=== PATIENT | male | born 1950 | race American Indian/Alaskan Native ===

== ENCOUNTER 2018-09-28 09:37 | Observation (INO) | payer MEDICARE ==
[2018-09-28] MEDS ORDERED: ZOFRAN IV PRN (10:00)
[2018-09-28] MEDS ORDERED: LACTATED RINGERS 1,000 ML IV SCH (10:00)
--- NOTE | 2018-09-28 10:01 | Anesthesia Day of Surgery ---
Anesthesia Day of Surgery - Day of Surgery Patient Examined: Yes Patient H&P Reviewed: Yes Patient is NPO: Yes
--- NOTE | 2018-09-28 10:07 | Anesthesia Consultation ---
Anesthesia Consult and Med Hx Date of service: 09/28/18 - Airway Anesthetic Teeth Evaluation: Chipped ROM Head & Neck: Adequate (Decreased extension) Mental/Hyoid Distance: Adequate Mallampati Class: Class III Intubation Access Assessment: Probably Good - Pre-Operative Health Status ASA Pre-Surgery Classification: ASA2 Proposed Anesthetic Plan: General - Pulmonary Hx Smoking: No Hx Sleep Apnea: No (BRIT PRE SCREEN HIGH RISK.) - Cardiovascular System Hx Hypertension: Yes (X 1 YR) - Other Systems Hx Cancer: No
[2018-09-28] MEDS ORDERED: ANCEF/STERILE WATER 2 GM/20 ML 2 GM/20 ML SYRINGE IV NR (11:00)
[2018-09-28] MEDS ORDERED: ANCEF/STERILE WATER 2 GM/20 ML 2 GM/20 ML SYRINGE IV ONE (11:17)
[2018-09-28] MEDS ORDERED: VERSED ONE (11:45)
[2018-09-28] MEDS ORDERED: DIPRIVAN 10 MG/ML IV ONE (11:45)
[2018-09-28] MEDS ORDERED: SUBLIMAZE ONE (11:45)
[2018-09-28] MEDS ORDERED: XYLOCAINE MPF 2% ONE (11:45)
[2018-09-28] MEDS ORDERED: WATER FOR IRRIG STERILE IR ONE (11:55)
[2018-09-28] MEDS ORDERED: METHYLENE BLUE ONE (12:13)
[2018-09-28] MEDS ORDERED: NACL P/F VIAL (10 ML) 10 ML ONE (12:14)
[2018-09-28] MEDS: SUBLIMAZE IV PRN ×2 (13:00→13:30)
--- NOTE | 2018-09-28 13:01 | Post Operative Note ---
Date of procedure: 09/28/18 Pre-op diagnosis: hematuria Post-op diagnosis: same Findings: large gland Procedure: cysto attempterd rpgs Anesthesia: GETA Surgeon: ADITYA MARIA Estimated blood loss: minimal Pathology: none Condition: stable Disposition: PACU
[2018-09-28] MEDS ORDERED: NACL 0.9% 1,000 ML IR ONE ×2 (13:02→13:26)
--- NOTE | 2018-09-28 13:05 | Discharge Summary ---
Short Stay Discharge Plan Activity: other (no straing ) Weight Bearing Status: Full Weight Bearing Diet: low salt Special Instructions: other Follow up with: TENISHA VILLASEÑOR MD [Primary Care Provider] - 7 Days ADITYA MARIA MD [Staff Physician] - 7 Days
--- NOTE | 2018-09-28 13:32 | Operative Report ---
PREOPERATIVE DIAGNOSIS: Hematuria. POSTOPERATIVE DIAGNOSIS: Very large prostate with multiple cellules, large middle lobe, mostly extending from the right lateral lobe. PROCEDURE: Cystoscopy, attempted retrograde. SURGEON: Edmar Green MD ANESTHESIA: General. FINDINGS: This is a gentleman with very large prostate. He now presents for cystoscopy. DESCRIPTION OF PROCEDURE: The patient was brought to the operating room and placed on the operating table. Following induction of anesthesia, placed in lithotomy position, prepped and draped in usual sterile fashion. Cystourethroscopy showed there is large polypoid middle lobe extending from the right lobe. He also had a subtrigonal lobe. It was difficult to get access to the trigone. Just by inserting the scope, the prostate was very friable and would bleed. He was on low dose of aspirin. We did not want to traumatize his prostate too much. We looked with the 30 and 70 degree lenses. There were cellules. We tried to inject, these were small diverticula. The patient tolerated the procedure well. We gave him blue. There was no clear blue with the Lasix noted. He tolerated the procedure well. We placed a 20 coude. We decided not to traumatize him. He may require TURP at a later date. We may give him some Proscar. JOB# [id number] PRESLEY/JENAE
[2018-09-28] MEDS ORDERED: NACL 0.9% 500 ML 500 ML IV ONE (13:40)
--- NOTE | 2018-09-28 14:06 | Progress Note ---
Subjective Date of service: 09/28/18 Interval history: huge intravesical lobular gland when transported sig gross heme looked like baloon moved distal cath irrigated clots cath cjhanged to #[address] wikll observe may need fulg or tur will try conservative tx Objective - Labs CBC & Chem 7: 09/28/18 10:20 Labs: Abnormal lab results 09/28/18 09/28/18 Range/Units 10:20 10:29 POC Potassium 2.8 L (3.5-4.9) Potassium 3.4 L (3.6-5.0) mmol/L POC BUN 27 H (8-26) mg/dl Medications & Allergies - Medications Allergies/Adverse Reactions: Allergies iodine Allergy (Verified 09/21/18 14:50) Rash shrimp Allergy (Verified 09/21/18 14:50) Rash Home Medications: Home Medications Medication Instructions Recorded Confirmed Last Taken Type Aspirin [Adult Aspirin] 81 mg PO DAILY 09/21/18 09/21/18 Unknown History Atenolol [Tenormin] 50 mg PO DAILY 09/21/18 09/21/18 Unknown History Lisinopril/Hydrochlorothiazide 1 each PO DAILY 09/21/18 09/21/18 Unknown History [Zestoretic 10-12.5 mg Tablet] Tamsulosin [Flomax] 0.4 mg PO QDAY 09/21/18 09/21/18 Unknown History amLODIPine [Norvasc] 10 mg PO DAILY 09/21/18 09/21/18 Unknown History Active Medications: Generic Name Dose Route Start Last Admin Trade Name Freq PRN Reason Stop Dose Admin Fentanyl 50 mcg 09/28/18 10:00 Sublimaze IV 09/28/18 23:59 Q5MIN PRN Pain , Severe (7-10) Lactated Ringer's 1,000 mls @ 125 mls/hr 09/28/18 10:00 Lactated Ringers IV DIRECT MARINA Ondansetron HCl 4 mg 09/28/18 10:00 Zofran IV ONCE PRN Nausea And Vomiting
[2018-09-28] MEDS ORDERED: BENADRYL IV ONE (14:20)
[2018-09-28] MEDS ORDERED: BENADRYL ONE (14:22)
[2018-09-28] MEDS ORDERED: TYLENOL PO PRN (14:48)
[2018-09-28] MEDS ORDERED: PERCOCET 5/325 PO PRN (14:48)
[2018-09-28] MEDS ORDERED: NACL 0.9% IR PRN (14:48)
[2018-09-28] MEDS ORDERED: AMBIEN PO PRN (14:48)
[2018-09-28] MEDS ORDERED: ZOFRAN ODT PO PRN (14:48)
[2018-09-28 15:00] LABS: Basophils % (Auto) 0.4 % (0.0-1.8); Eosinophils % (Auto) 0.3 % (0.0-4.3); Hematocrit 44.1 % (35.5-45.6); Hemoglobin 14.6 gm/dl (11.8-15.2); Lymphocytes # (Auto) 0.8 K/mm3 (1.2-5.4); Lymphocytes % (Auto) 10.9 % (13.4-35.0); Mean Corpuscular HGB Conc 33 % (32-34); Mean Corpuscular Volume 85 fl (84-94); Monocytes # (Auto) 0.1 K/mm3 (0.0-0.8); Platelet Count 183 K/mm3 (140-440); Red Cell Distribution Width 14.8 % (13.2-15.2)
--- NOTE | 2018-09-28 15:30 | Fluoroscopy Report ---
FLUOROSCOPY RETROGRADE UROGRAPHY HISTORY: Hematuria. FINDINGS: Fluoroscopy was provided by radiology during retrograde urography by the urologist. 3 fluor oscopic images were captured. 0.4 minutes of fluoroscopy time was utilized. The images demonstrate a small amount of contrast agent within the bladder. There is no obvious bladd er abnormality although there is very poor distention of the bladder. The procedural notes mention un successful cannulation of the UVJs bilaterally. The collecting systems could not be opacified. Please correlate with the procedural report by Dr. Green. IMPRESSION: Unsuccessful bilateral retrograde pyelogram. Please see above and correlate with the operative report . Signer Name: Heron Garcia Jr, MD Signed: 09/28/2018 3:26 PM Workstation Name: [id number]
[2018-09-28 15:38] LABS: BUN/Creatinine Ratio 18; Blood Urea Nitrogen 23 mg/dL (9-20); Calcium 9.3 mg/dL (8.4-10.2); Hemolysis Index 8
[2018-09-28] MEDS ORDERED: NACL 0.9% 4,000 ML ONE (16:45)
--- NOTE | 2018-09-28 16:48 | History and Physical Report ---
HISTORY OF PRESENT ILLNESS: The patient is a gentleman, who is 68 years of age, who presented with hematuria, some irregularity in his kidneys and some vascular versus renal calcifications in the upper ureter and he now presents for cystoscopy. We did a cystoscopy and from the beginning of the case once we entered the bladder, there was a large lobule extending from the right lobe and subtrigonal lobe, which would ooze. We could not see the trigone well. We tried as best we could. We saw lots of cellules, tried to inject to see if there was a retrograde and we could not inject any fluid in the orifices. We elected to stop and placed a 20-Serbian coude catheter. When he got to the recovery room, I suspect it moved distally. He started having lots of gross hematuria with clots. We cleared the clots out, change the catheter to 22 three-way. We will watch him for observation, possible followup cystoscopy and fulguration. PAST MEDICAL HISTORY: History of hypertension. MEDICATIONS: Lisinopril, amlodipine and atenolol and he was on aspirin, he said he stopped it 10 days ago. ALLERGIES: SHRIMP and SEAFOOD. SOCIAL HISTORY: Noncontributory. FAMILY HISTORY: Noncontributory. REVIEW OF SYSTEMS: As mentioned above, he does have occasional nocturia and diminished flow. PHYSICAL EXAMINATION: GENERAL: He is awake. He is in no distress. Alberts is draining pink tinged. ABDOMEN: Soft, nondistended. GENITALIA: Circumcised. Testes descended bilaterally. Lynn draining well. IMPRESSION AND PLAN: Gross hematuria, large gland. No TURP was done. No biopsies were done just a plain cystoscopy and he has gross hematuria. We will watch him. If he continues to bleed, we will do fulguration and we may have to resect that intravesical lobe. JOB# [id number] PRESLEY/JENAE
[2018-09-28] MEDS ORDERED: FLOMAX PO SCH (18:00)
[2018-09-28] MEDS: ANCEF/NS 1 GM/50 ML 1 GM/50 ML BAG IV SCH ×2 (18:30→22:49)
[2018-09-28] MEDS ORDERED: VASELINE LIP THERAPY TP PRN (19:01)
--- NOTE | 2018-09-28 19:14 | Post Anesthesia Evaluation ---
- Post Anesthesia Evaluation Patient Participated: Yes Airway Patent: Yes Stable Respiratory Function: Yes Nausea/Vomiting: No Temp > 96.8F: Yes Pain Manageable: Yes Adequeate Hydration: Yes Anesthesia Complications: No
[2018-09-28] MEDS: D5W/0.45% NACL/KCL 20 MEQ 20 MEQ/1,000 ML BAG IV SCH (20:27)
[2018-09-28] MEDS: NACL 0.9% IR SCH ×6 (20:30→23:57)
[2018-09-28] MEDS: COLACE PO SCH (21:25)
[2018-09-29] MEDS: NACL 0.9% IR SCH ×5 (01:37→07:11)
[2018-09-29] MEDS: D5W/0.45% NACL/KCL 20 MEQ 20 MEQ/1,000 ML BAG IV SCH (04:17)
[2018-09-29 04:32] LABS: Basophils % (Auto) 0.5 % (0.0-1.8); Hematocrit 39.8 % (35.5-45.6); Hemoglobin 13.3 gm/dl (11.8-15.2); Lymphocytes # (Auto) 0.9 K/mm3 (1.2-5.4); Lymphocytes % (Auto) 10.6 % (13.4-35.0); Mean Corpuscular HGB Conc 33 % (32-34); Mean Corpuscular Volume 85 fl (84-94); Monocytes # (Auto) 0.6 K/mm3 (0.0-0.8); Monocytes % (Auto) 6.9 % (0.0-7.3); Platelet Count 163 K/mm3 (140-440); Red Cell Distribution Width 14.5 % (13.2-15.2)
[2018-09-29 04:47] LABS: BUN/Creatinine Ratio 17; Blood Urea Nitrogen 22 mg/dL (9-20); Calcium 8.4 mg/dL (8.4-10.2); Hemolysis Index 8
[2018-09-29] MEDS: COLACE PO SCH (10:30)
--- NOTE | 2018-09-29 11:03 | Short Stay Summary ---
Short Stay Documentation Date of service: 09/28/18 Narrative H&P: 68 yr old male with hematuria - History Past Medical History: No medical history Past Surgical History: No surgical history Social history: no significant social history - Allergies and Medications Current Medications: Allergies iodine Allergy (Verified 09/21/18 14:50) Rash shrimp Allergy (Verified 09/21/18 14:50) Rash Home Medications Medication Instructions Recorded Confirmed Last Taken Type Aspirin [Adult Aspirin] 81 mg PO DAILY 09/21/18 09/28/18 09/24/18 09:00 History Atenolol [Tenormin] 50 mg PO DAILY 09/21/18 09/28/18 09/27/18 09:00 History Lisinopril/Hydrochlorothiazide 1 each PO DAILY 09/21/18 09/28/18 09/27/18 09:00 History [Zestoretic 10-12.5 mg Tablet] Tamsulosin [Flomax] 0.4 mg PO QDAY 09/21/18 09/28/18 09/27/18 09:00 History amLODIPine [Norvasc] 10 mg PO DAILY 09/21/18 09/28/18 09/27/18 09:00 History Active Medications Acetaminophen (Tylenol) 650 mg PO Q4H PRN PRN Reason: Pain MILD(1-3)/Fever >100.5/VELARDE Docusate Sodium (Colace) 100 mg PO BID MARINA Last Admin: 09/29/18 10:30 Dose: 100 mg Documented by: Hydrophilic Ointment (Vaseline Lip Therapy) 1 applic TP DIRECT PRN PRN Reason: Dry Lips Lactated Ringer's (Lactated Ringers) 1,000 mls @ 125 mls/hr IV DIRECT MARINA Last Admin: 09/28/18 11:20 Dose: 125 mls/hr Documented by: Potassium Chloride/Dextrose/Sod Cl (D5w/0.45% Nacl/Kcl 20 Meq) 20 meq in 1,000 mls @ 125 mls/hr IV DIRECT MARINA Last Admin: 09/29/18 04:17 Dose: 125 mls/hr Documented by: Ondansetron HCl (Zofran) 4 mg IV ONCE PRN PRN Reason: Nausea And Vomiting Ondansetron HCl (Zofran Odt) 4 mg PO Q8H PRN PRN Reason: Nausea And Vomiting Last Admin: 09/29/18 04:27 Dose: 4 mg Documented by: Oxycodone/Acetaminophen (Percocet 5/325) 2 tab PO Q6H PRN PRN Reason: Pain, Moderate (4-6) Sodium Chloride (Nacl 0.9%) 30 ml IR Q2H PRN PRN Reason: Beebe irrigation Last Admin: 09/28/18 22:55 Dose: 30 ml Documented by: Sodium Chloride (Nacl 0.9%) 2,000 ml IR DIRECT MARINA Last Admin: 09/29/18 07:11 Dose: 2,000 ml Documented by: Tamsulosin HCl (Flomax) 0.4 mg PO QPM MARINA Last Admin: 09/28/18 19:58 Dose: 0.4 mg Documented by: Zolpidem Tartrate (Ambien) 5 mg PO QHS PRN PRN Reason: Sleep - Physical exam General appearance: no acute distress, well-nourished Integumentary: no rash, no growths Lungs: Clear to auscultation Heart: Regular rate, No murmurs Gastrointestinal: normal Extremities: no ischemia, No edema - Brief post op/procedure progress note Date of procedure: 09/28/18 Pre-op diagnosis: hematuria Post-op diagnosis: same Procedure: cysto Anesthesia: GETA Surgeon: ADITYA MARIA Estimated blood loss: none Pathology: none Condition: stable - Hospital course Hospital course: ceftin & norco home with beebe - Disposition Condition at discharge: Stable Disposition: DC-01 TO HOME OR SELFCARE Short Stay Discharge Plan Follow up with: ADITYA MARIA MD [Staff Physician] - 7 Days TENISHA VILLASEÑOR MD [Primary Care Provider] - 7 Days
[2018-09-29 11:32] VITALS: BP 138/63
== END 2018-09-29 13:00 | disposition home or self-care (01) ==
LOC: OR 09:37 → 3B-SURG 15:01
PROVIDERS: ADMIT Urology; ATTEND Urology
DX: N40.0 Benign prostatic hyperplasia without lower urinary tract symptoms (principal); R31.29 Other microscopic hematuria; I10 Essential (primary) hypertension
CPT/HCPCS: 36415; 52000; 74420; 80048; 82803; 84132; 85025; 86850; 86900; 86901; 86920; 96365; 96375; A4217; C1758; G0378; J0690; J1200; J2250; J2704; J3010; J7120; Q9967; Q9968; Q0162

== ENCOUNTER 2018-09-29 18:26 | Emergency (ER) | payer MEDICARE ==
--- NOTE | 2018-09-29 18:35 | Event Note ---
ED Screening Note ED Screening Note: pt saw Dr. Green, urology yesterday had a procedure done yesterday had a "spot on his kidney" which the patient states he believes he was told it was a "blood clot" had a beebe placed yesterday pt is seeing blood and passing clots states it is leaking out around the beebe coming from the penis PMHx HTN allergy: shrimp and iodine This initial assessment/diagnostic orders/clinical plan/treatment(s) is/are subject to change based on patients health status, clinical progression and re-assessment by fellow clinical providers in the ED. Further treatment and workup at subsequent clinical providers discretion. Patient/guardian urged not to elope from the ED as their condition may be serious if not clinically assessed and managed. Initial orders include: labs, UA
[2018-09-29 19:49] LABS: Hematocrit 40.2 % (35.5-45.6); Hemoglobin 13.3 gm/dl (11.8-15.2); Mean Corpuscular HGB Conc 33 % (32-34); Mean Corpuscular Hemoglobin 28 pg (28-32); Mean Corpuscular Volume 85 fl (84-94); Platelet Count 182 K/mm3 (140-440); Red Blood Count 4.73 M/mm3 (3.65-5.03); Red Cell Distribution Width 14.5 % (13.2-15.2)
[2018-09-29 20:09] LABS: Calcium 9.6 mg/dL (8.4-10.2)
[2018-09-29] MEDS ORDERED: MORPHINE IV ONE (20:41)
[2018-09-29] MEDS ORDERED: ZOFRAN IV ONE (20:41)
[2018-09-29 20:43] LABS: Basophils % (Manual) 0 % (0.0-1.8); Eosinophils % (Manual) 0 % (0.0-4.3); Large Platelets 1+; Platelet Estimate Consistent w Auto; RBC Morphology Normal; Total Cells Counted 100
--- NOTE | 2018-09-29 20:47 | Emergency Department Report ---
ED Male HPI - General Chief complaint: Urogenital-Male Stated complaint: CATH BLOCKAGE Time Seen by Provider: 09/29/18 18:31 Source: patient Mode of arrival: Wheelchair Limitations: No Limitations - History of Present Illness Initial comments: Patient is 68 years old male with history of benign prostatic hypertrophy status post cystoscopy yesterday. Patient discharged from the hospital today. Patient stated that he is having more pain and he started passing clots and now there is nothing coming out through the Lynn catheter and the urine leaking around it. Patient denied any fever or chills. Patient also denies any nausea or vomiting. MD Complaint: dysuria, other - Related Data Home Medications Medication Instructions Recorded Confirmed Last Taken Aspirin [Adult Aspirin] 81 mg PO DAILY 09/21/18 09/28/18 09/24/18 09:00 Atenolol [Tenormin] 50 mg PO DAILY 09/21/18 09/28/18 09/27/18 09:00 Lisinopril/Hydrochlorothiazide 1 each PO DAILY 09/21/18 09/28/18 09/27/18 09:00 [Zestoretic 10-12.5 mg Tablet] Tamsulosin [Flomax] 0.4 mg PO QDAY 09/21/18 09/28/18 09/27/18 09:00 amLODIPine [Norvasc] 10 mg PO DAILY 09/21/18 09/28/18 09/27/18 09:00 Allergies Allergy/AdvReac Type Severity Reaction Status Date / Time iodine Allergy Rash Verified 09/21/18 14:50 shrimp Allergy Rash Verified 09/21/18 14:50 ED Review of Systems ROS: Stated complaint: CATH BLOCKAGE Other details as noted in HPI Comment: All other systems reviewed and negative Constitutional: denies: chills, fever Respiratory: denies: cough, orthopnea, shortness of breath, SOB with exertion, SOB at rest, wheezing Cardiovascular: denies: chest pain, palpitations, dyspnea on exertion Gastrointestinal: denies: abdominal pain, nausea, vomiting Neurological: denies: headache, weakness ED Past Medical Hx - Past Medical History Previous Medical History?: Yes Hx Hypertension: Yes Hx HIV: No - Surgical History Past Surgical History?: No - Social History Smoking Status: Never Smoker Substance Use Type: None - Medications Home Medications: Home Medications Medication Instructions Recorded Confirmed Last Taken Type Aspirin [Adult Aspirin] 81 mg PO DAILY 09/21/18 09/28/18 09/24/18 09:00 History Atenolol [Tenormin] 50 mg PO DAILY 09/21/18 09/28/18 09/27/18 09:00 History Lisinopril/Hydrochlorothiazide 1 each PO DAILY 09/21/18 09/28/18 09/27/18 09:00 History [Zestoretic 10-12.5 mg Tablet] Tamsulosin [Flomax] 0.4 mg PO QDAY 09/21/18 09/28/18 09/27/18 09:00 History amLODIPine [Norvasc] 10 mg PO DAILY 09/21/18 09/28/18 09/27/18 09:00 History ED Physical Exam - General Limitations: No Limitations General appearance: alert, in no apparent distress - Head Head exam: Present: atraumatic, normocephalic, normal inspection - Eye Eye exam: Present: normal appearance, PERRL - ENT ENT exam: Present: normal exam, normal orophraynx, mucous membranes moist - Neck Neck exam: Present: normal inspection, full ROM. Absent: tenderness, meningismus, lymphadenopathy, thyromegaly - Respiratory Respiratory exam: Present: normal lung sounds bilaterally - Cardiovascular Cardiovascular Exam: Present: regular rate, normal rhythm, normal heart sounds - GI/Abdominal GI/Abdominal exam: Present: soft, normal bowel sounds. Absent: distended, tenderness, guarding, rebound, rigid - exam: Absent: testicular tenderness, scrotal swelling External exam: Present: normal external exam, other (Lynn catheter in place.) - Extremities Exam Extremities exam: Present: normal inspection, full ROM - Neurological Exam Neurological exam: Present: alert, oriented X3, CN II-XII intact, normal gait, reflexes normal - Psychiatric Psychiatric exam: Present: normal mood - Skin Skin exam: Present: warm, intact, normal color ED Course Vital Signs 09/29/18 18:33 Temperature 97.9 F Pulse Rate 63 Respiratory 16 Rate Blood Pressure 154/64 O2 Sat by Pulse 98 Oximetry ED Medical Decision Making - Lab Data Result diagrams: 09/29/18 19:24 09/29/18 19:24 - Medical Decision Making Patient is 68 years old male with history of benign prostatic hypertrophy status post cystoscopy yesterday. Patient discharged from the hospital today. Patient stated that he is having more pain and he started passing clots and now there is nothing coming out through the Lynn catheter and the urine leaking around it. Patient denied any fever or chills. Patient also denies any nausea or vomiting. Lynn catheter irrigated, clots removed with clear drainage of urine. I discussed the patient was Dr. Tejeda, he advised to discharge the patient home and to follow-up with him in his office tomorrow morning at 9 AM. Patient informed about his appointment and advised to return to the ER if symptoms are not improved. Critical care attestation.: If time is entered above; I have spent that time in minutes in the direct care of this critically ill patient, excluding procedure time. ED Disposition Clinical Impression: Acute retention of urine, Lynn catheter problem Disposition: TO HOME OR SELFCARE Is pt being admited?: No Condition: Stable Instructions: Urinary Retention in Men (ED) Referrals: ADITYA MARIA MD [Staff Physician] - 3-5 Days
[2018-09-29] MEDS ORDERED: NACL 0.9% IR SCH (21:00)
[2018-09-29] MEDS ORDERED: NACL 0.9% 2,000 ML IR ONE (21:45)
[2018-09-30 01:47] VITALS: BP 142/60
== END 2018-09-29 23:20 | disposition home or self-care (01) ==
LOC: ED 18:26
DX: T83.038A Leakage of other urinary catheter, initial encounter (principal); R33.9 Retention of urine, unspecified; Z91.013 Allergy to seafood; Z91.09 Other allergy status, other than to drugs and biological substances; Z96.0 Presence of urogenital implants; Z87.430 Personal history of prostatic dysplasia; Y84.6 Urinary catheterization as the cause of abnormal reaction of the patient, or of later complication, without mention of misadventure at the time of the procedure; Y92.89 Other specified places as the place of occurrence of the external cause
CPT/HCPCS: 36415; 80048; 85007; 85025; 96374; 96375; 99283; A4217; J2270; J2405